=== PATIENT | female | born 1935 | race Caucasian/White ===

== ENCOUNTER 2016-05-19 19:44 | Observation (INO) | payer MEDICARE, BC ==
--- NOTE | 2016-05-19 20:45 | EDM.PDOC ---
ED HISTORY OF PRESENT ILLNESS - General Chief Complaint: Chest Pain Stated Complaint: chest heaviness at 1200 no chest pain Time Seen by Provider: 05/19/16 20:24 Source of Information: Reports: Patient, Family History Limitations: Reports: No limitations - History of Present Illness INITIAL COMMENTS - FREE TEXT/NARRATIVE: pt states at 1200 to day had chest heaviness all over that cant be described or quantified with a number but NO PAIN that lasted till 6pm and got better after taken a 325mg asa pt denies any SOB CP NV abd pain had 1 diarrhea BM this am has had chest congestion x montha saw pcp multiple x no results with meds xrays denies fever chills cough no cardiac HX has 24 hrs 2 yrs ago with same s/s normal stay with labs no work up Timing/Duration: Reports: Hour(s): Severity: mild Location, General: Reports: chest Quality: Reports: Other Improves with: Reports: Other (asa) Worsens with: Reports: None Associated Symptoms (General): Reports: no other symptoms 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 - Related Data Allergies/ADRs: Allergies Allergy/AdvReac Type Severity Reaction Status Date / Time No Known Drug Allergies Allergy Other Verified 05/19/16 22:58 Home Meds: Home Meds Allopurinol [Zyloprim] 150 mg PO DAILY 10/21/13 [History] Aspirin 81 mg PO DAILY 10/21/13 [History] Fluticasone Propionate 16 gm NS DAILY PRN 10/21/13 [History] Guaifenesin/Pseudoephedrne HCl [Mucinex D ER] 1 tab PO BID PRN 10/21/13 [History ] Lisinopril [Prinivil] 2.5 mg PO DAILY 10/21/13 [History] Simvastatin [Zocor] 20 mg PO BEDTIME 10/21/13 [History] metFORMIN [Glucophage] 1,000 mg PO WDIN 10/21/13 [History] Nitroglycerin 0.4 mg SL ASDIRECTED #10 tab.subl 10/22/13 [Rx] Montelukast Sodium [Singulair] 10 mg PO DAILY #30 tablet 05/20/16 [Rx] Past Medical History HEENT History: Reports: Allergic rhinitis Cardiovascular History: Reports: Angina, High cholesterol, Hypertension. Denies : Afib, Aneurysm, Arrhythmia, Blood clots/VTE/DVT, CAD, Pacemaker, Pulmonary hypertension, PVD, SOB on exertion, Stents, Syncope Respiratory History: Denies: Asthma, Bronchitis, recurrent, COPD, PE, Sleep apnea, SOB Gastrointestinal History: Reports: None Musculoskeletal History: Reports: Gout Endocrine/Metabolic History: Reports: Diabetes, type II Oncologic (Cancer) History: Reports: Squamous cell carcinoma, Other (see below) Other Oncologic History: to left calf Social & Family History - Tobacco Use Smoking Status *Q: Never Smoker Second Hand Smoke Exposure: No - Alcohol Use Days Per Week of Alcohol Use: 0 - Recreational Drug Use Recreational Drug Use: No ED ROS GENERAL - Review of Systems Review Of Systems: See Below Constitutional: Denies: fever, chills, weakness, fatigue, night sweats, diaphoresis, decreased appetite, weight gain HEENT: Reports: No symptoms Respiratory: Reports: Sputum. Denies: Shortness of Breath, Wheezing, Pleuritic Chest Pain, Cough, Hemoptysis Cardiovascular: Denies: Chest pain, Blood pressure problem, Claudication, Dyspnea on exertion, Edema, Lightheadedness, Orthopnea, Palpitations, PND, Syncope Endocrine: Denies: fatigue, high glucose GI/Abdominal: Denies: Abdominal pain, Nausea, Vomiting : Reports: no symptoms Skin: Reports: no symptoms Neurological: Reports: No Symptoms Psychiatric: Reports: No symptoms Hematologic/Lymphatic: Reports: no symptoms Immunologic: Reports: no symptoms ED EXAM, GENERAL - Physical Exam Exam: See Below Exam Limited By: No limitations General Appearance: alert, WD/WN, no apparent distress Ears: normal external exam Nose: normal inspection, normal mucosa Throat/Mouth: Normal inspection, Normal lips, Normal teeth, Normal oropharynx Neck: normal inspection, supple, non-tender, full range of motion. No: carotid bruit Respiratory/Chest: no respiratory distress, lungs clear, normal breath sounds, no accessory muscle use, chest non-tender. No: respiratory distress, decreased breath sounds, crackles, rales, rhonchi, wheezing, accessory muscle use Cardiovascular: normal peripheral pulses, regular rate, rhythm. No: JVD GI/Abdominal: normal bowel sounds, soft, non tender, no organomegaly, no distention, no abnormal bruit Back Exam: normal inspection, full range of motion. No: CVA tenderness (L), CVA tenderness (R) Extremities: normal inspection, normal range of motion, non-tender, no pedal edema Neurological: alert, oriented, CN II-XII intact Psychiatric: normal affect Skin Exam: Warm, Dry Lymphatic: no adenopathy EKG INTERPRETATION EKG Date: 05/19/16 Course - Vital Signs Text/Narrative:: ekg cbcbbmp mg trop CXR labs normal xray NAF per pt BUN CR have been mildly elevated last few visits will obs pt for serial trops and DR Haas will see in am she believes pt had neg stress test in past with prior obs 2144 Last Recorded V/S: Last Vital Signs Temp 36.6 C 05/20/16 05:49 Pulse 62 05/20/16 05:49 Resp 16 05/20/16 05:49 BP 101/46 L 05/20/16 05:49 Pulse Ox 95 05/20/16 05:49 - Orders/Labs/Meds Orders: Active Orders 24 hr Category Date Time Status EKG 12 Lead [EKG Documentation Completion] [RC] .PRN Care 05/19/16 20:24 Active Chest 2V [CR] Stat Exams 05/19/16 20:23 Taken Labs: Laboratory Tests 05/19/16 05/19/16 Range/Units 20:40 20:40 WBC 7.7 (4.0-10.0) x10^3/uL RBC 4.68 (4.00-5.50) x10^6/uL Hgb 13.4 (12.0-16.0) g/dL Hct 40.8 (33.0-47.0) % MCV 87.2 (78.0-93.0) fL MCH 28.6 (26.0-32.0) pg MCHC 32.8 (32.0-36.0) g/dL RDW Coeff of Mario 13.6 (10.0-15.0) % Plt Count 197 (130-400) x10^3/uL Neut % (Auto) 39.6 L (50.0-80.0) % Lymph % (Auto) 42.5 (25.0-50.0) % Dixon % (Auto) 9.0 (2.0-11.0) % Eos % (Auto) 8.4 H (0.0-4.0) % Baso % (Auto) 0.5 (0.2-1.2) % Sodium 140 (136-145) mmol/L Potassium 4.0 (3.5-5.1) mmol/L Chloride 105 (98-107) mmol/L Carbon Dioxide 31 (21-32) mmol/L BUN 21 H (7-18) mg/dL Creatinine 1.1 H (0.55-1.02) mg/dL Est Cr Clr Drug Dosing TNP Estimated GFR (MDRD) 48 Glucose 126 H (74-106) mg/dL Calcium 9.8 (8.5-10.1) mg/dL Troponin I < 0.017 (<=0.056) ng/mL Meds: Medications Discontinued Medications Generic Name Dose Route Start Last Admin Trade Name Freq PRN Reason Stop Dose Admin Lisinopril 2.5 mg 05/20/16 08:00 05/20/16 07:48 Prinivil PO 2.5 mg DAILY [facility] Administration Metformin HCl 1,000 mg 05/19/16 22:45 05/20/16 00:56 Glucophage PO Not Given WDIN [facility] Metformin HCl 1,000 mg 05/20/16 18:00 Glucophage PO DAILY@1800 [facility] Nitroglycerin 0.4 mg 05/19/16 22:45 Nitrostat SL ASDIRECTED [facility] Departure - Departure Time of Disposition: 22:00 Disposition: Refer to Observation Condition: good Clinical Impression: Acute coronary syndrome, Angina - Problem List & Annotations (1) Atypical angina SNOMED Code(s): 181001381 Code(s): I20.8 - OTHER FORMS OF ANGINA PECTORIS Status: Acute - My Orders Last 24 Hours: My Active Orders 05/19/16 20:23 Chest 2V [CR] Stat 05/19/16 20:24 EKG 12 Lead [EKG Documentation Completion] [RC] .PRN - Assessment/Plan Admission H&P: Please use this note as an admission H&P Last 24 Hours: My Active Orders 05/19/16 20:23 Chest 2V [CR] Stat 05/19/16 20:24 EKG 12 Lead [EKG Documentation Completion] [RC] .PRN
[2016-05-19 21:09] LABS: CHLORIDE,CL 105 mmol/L (98-107); SODIUM,NA 140 mmol/L (136-145)
[2016-05-19] MEDS ORDERED: metFORMIN 500 MG Tab PO SCH (22:45)
[2016-05-19] MEDS ORDERED: Nitroglycerin 0.4 MG Tab.SL SL SCH (22:45)
[2016-05-20 05:51] VITALS: BP 101/46
[2016-05-20] MEDS ORDERED: Lisinopril 2.5 MG Tab PO SCH (08:00)
[2016-05-20] MEDS ORDERED: metFORMIN 500 MG Tab PO SCH (18:00)
--- NOTE | 2016-05-20 22:48 | DISCH ---
PRIMARY DISCHARGE DIAGNOSES: 1. Chest tightness, likely atypical angina but ruled out for myocardial infarction with serial troponins. 2. No documented history of coronary artery disease. 3. Diabetes with peripheral neuropathy. 4. Likely chronic rhinitis. REASON FOR ADMISSION: On the date of admission, this 80-year-old female had an onset of chest tightness while she was just working, decluttering things in her home. It was persistent and finally around supper time, she took some aspirin and then got in the car, they decided to come to [place] to the emergency room but on the way here, the pain actually went away. She had no shortness of breath or other symptoms during her chest tightness. She had not been having other problems over the last couple of weeks with chest tightness. She had a previous admission in 10/2013 for any angina and ended up with a negative Cardiolite. She also had a negative Cardiolite exam back in 2013. She was able to go over 3 minutes on the treadmill back then. She was out in her yard feeding her cats and things earlier yesterday without any pain. Otherwise, she feels that she just congested in the chest but she has not been coughing. She has been doing a lot of sneezing. She has had a lot of allergy and sinus symptoms, scratchy throat with drainage. So, she was using Flonase and saline sprays but has been off her Claritin for about 2 weeks. She has not been wheezing or having any asthma type symptoms. DISCHARGE PLANS AND INSTRUCTIONS: The patient is being discharged home for outpatient followup with Dr. Haas in June. No lab work is due until September. She will be started on a new medication to try Singulair to see if it helps her symptoms. In the mean time, she does not need to restart her Claritin but may continue the saline rinses and Flonase. Telemetry was monitored. She had no events. EKG was repeated in the morning of discharge and looked okay with a normal sinus rhythm, nonspecific inferior ST changes. Monika Ascencio admitted for observation for chest pain and ruled out with negative troponins. Physical Exam Constitutional: She is oriented to person, place, and time. She appears well- developed and well-nourished. No distress. HENT: Head: Normocephalic and atraumatic. Mouth/Throat: Uvula is midline and oropharynx is clear and moist. No oropharyngeal exudate. Eyes: Conjunctivae and EOM are normal. Pupils are equal, round, and reactive to light. Right eye exhibits no discharge. Left eye exhibits no discharge. No scleral icterus. Neck: Normal range of motion. Neck supple. No JVD present. No tracheal deviation present. No thyromegaly present. Cardiovascular: Normal rate, regular rhythm, normal heart sounds and intact distal pulses. No murmur heard. Pulmonary/Chest: Effort normal and breath sounds normal. No respiratory distress. She has no wheezes. She has no rales. She exhibits no tenderness. Musculoskeletal: Normal range of motion. She exhibits no edema or tenderness. Lymphadenopathy: She has no cervical adenopathy. Neurological: She is alert and oriented to person, place, and time. She has normal reflexes. No cranial nerve deficit. She exhibits normal muscle tone. Coordination normal. Skin: Skin is warm and dry. No rash noted. She is not diaphoretic. No erythema. No pallor. Psychiatric: She has a normal mood and affect. Her speech is normal and behavior is normal. Judgment and thought content normal. MKA: 05/20/2016 09:00:48 MODL: 05/20/2016 22:42:44 /[id number] MTDD
== END 2016-05-20 09:10 | disposition home or self-care (01) ==
LOC: VM.ED 19:44 → VM.MS 22:13
PROVIDERS: ADMIT Physician Assistant Medical; ATTEND Physician Assistant Medical
DX: R07.89 Other chest pain (principal); E11.42 Type 2 diabetes mellitus with diabetic polyneuropathy; I10 Essential (primary) hypertension; E78.00 Pure hypercholesterolemia, unspecified; Z79.82 Long term (current) use of aspirin; Z79.899 Other long term (current) drug therapy
CPT/HCPCS: 36415; 71020; 80048; 84484; 85025; 93005; 99285; A9270; G0378; 99219

== ENCOUNTER 2019-11-01 06:16 | Day surgery (SDC) | payer MEDICARE, BC ==
[2019-11-01] MEDS: Lactated Ringers 1,000 ML IV SCH (06:47)
[2019-11-01] MEDS ORDERED: fentaNYL 100 MCG/2 ML SDV ONE (07:33)
[2019-11-01] MEDS ORDERED: Propofol 200 MG/20 ML SDV ONE ×2 (07:33→08:06)
[2019-11-01 09:07] VITALS: BP 111/62; PULSE 71
--- NOTE | 2019-11-01 12:23 | OR ---
PREOPERATIVE DIAGNOSES: 1. Unexplained weight loss. 2. Diarrhea. 3. History of difficult colonoscopies that were aborted x2. POSTOPERATIVE DIAGNOSES: 1. Unexplained weight loss. 2. Diarrhea. 3. History of difficult colonoscopies that were aborted x2. 4. Sigmoid diverticulosis. PROCEDURE PERFORMED: Total flexible colonoscopy. FINDINGS: 1. Sigmoid colon polyp x2, 3 mm, cold forceps. 2. Rectal polyp, 2 mm, cold forceps. 3. Mild sigmoid diverticulosis. 4. Otherwise grossly normal colon, random biopsies obtained. 5. Tortuous and redundant colon requiring quite a bit of varied abdominal pressure to get the scope all the way to the cecum. This scope was really very difficult and I would recommend that any future colonoscopies be done by GI. ANESTHESIA: MAC anesthesia. COMPLICATIONS: None apparent. BLOOD LOSS: Minimal. START TIME: 0744. CECUM TIME: 0817. STOP TIME: 08. BOWEL PREP: [place] class 3. INDICATIONS FOR PROCEDURE: Ms. Ascencio is an 84-year-old female who has had about a 20-pound weight loss over the last 6 to 7 months. This is unexplained. She also has been having some associated diarrhea. Her PCP ordered a CT scan which was reportedly normal, although I have not personally seen the results of this. The colonoscopy is component of her workup for this weight loss. Notably, her last colonoscopy was in 2011, which was negative for polyps. However, the endoscopist was unable to get past the transverse colon due to redundancy. The scope prior to that also was apparently very difficult and the endoscopist was unable to get past the transverse colon. She denies a family history of colon cancer. DETAILS OF PROCEDURE: After informed consent was obtained, the patient was brought to the procedure room and placed in left lateral decubitus position. MAC anesthesia was induced by Anesthesia colleagues. The endoscope incorporated with an Endocuff was introduced into the rectum and was passed through the transverse colon. As was previously documented, we found this very difficult and at one point we were unable to pass the scope any further. I did feel that the Endocuff was creating just a bit of just enough resistance to inhibit us. So, the endoscope was withdrawn and the Endocuff device was removed. This was again advanced to the transverse colon. It was very difficult to get through this portion of the colon. The patient required very abdominal pressure. We also spent some time attempting to reduce any loops that had formed in the sigmoid colon. Ultimately, after several attempts, we were able to reach the cecum. The appendiceal orifice and ileocecal valve were photographed. The endoscope was then slowly withdrawn and no pathology was identified except for what is mentioned in the above findings section. The scope was difficult enough that I feel if she should need any additional colonoscopy, that should be done by a GI specialist. 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 Given age future colon cancer screening not required. 2. Discussed diagnosis of collagenous (lymphocytic) colitis with PCP over the phone. She will manage this for the patient. RKM: 11/01/2019 08:43:50 MODL: 11/01/2019 11:04:55 /[id number] JOSEY
--- NOTE | 2019-11-07 09:52 | LETTER ---
11/03/2019 RE: VALDEMAR PATEL : 1935 Ms. Valdemar Patel [id number] [id number] Dear Ms. Patel: I am writing to inform you of the pathology results of your colonoscopy. We did discuss these in detail over the phone earlier today, but this letter will serve as a document for your records. You had a couple of small polyps, which are unconcerning. You do not require additional screening for colorectal cancer given your age. In addition, we found evidence of a diagnosis called collagenous colitis. This is also sometimes called lymphocytic colitis. It is a problem in the colon that can cause both your diarrhea and the weight loss that you have been experiencing. It is treated with medicines. These medications usually are oriented towards decreasing of the inflammation in your colon. I spoke on the phone with Dr. Haas, who will prescribe you a medication to start treating this. She will then discuss this with you in more detail at your upcoming appointment on 11/14. Please call if you have any questions or concerns. Warmest regards,
== END 2019-11-01 09:55 | disposition home or self-care (01) ==
LOC: VM.SDS 06:16
PROVIDERS: ATTEND Student in an Organized Health Care Education/Training Program
DX: D12.5 Benign neoplasm of sigmoid colon (principal); K62.1 Rectal polyp; K57.30 Diverticulosis of large intestine without perforation or abscess without bleeding; Q43.8 Other specified congenital malformations of intestine; K52.9 Noninfective gastroenteritis and colitis, unspecified; G25.0 Essential tremor; E55.9 Vitamin D deficiency, unspecified; N95.9 Unspecified menopausal and perimenopausal disorder; G89.29 Other chronic pain; M25.512 Pain in left shoulder; M25.511 Pain in right shoulder; E78.00 Pure hypercholesterolemia, unspecified; E78.5 Hyperlipidemia, unspecified; M10.9 Gout, unspecified; E11.40 Type 2 diabetes mellitus with diabetic neuropathy, unspecified; Z98.890 Other specified postprocedural states; Z01.812 Encounter for preprocedural laboratory examination; Z20.828 Contact with and (suspected) exposure to other viral communicable diseases; Z79.899 Other long term (current) drug therapy; Z88.8 Allergy status to other drugs, medicaments and biological substances
CPT/HCPCS: 00811; 45380; 82962; J2704; J3010; J7120; U0002; 88305

== ENCOUNTER 2022-05-21 11:58 | Emergency (ER) | payer MEDICARE, BC ==
[2022-05-21 12:47] VITALS: BP 146/65
[2022-05-21 13:08] LABS: CHLORIDE,CL 104 mmol/L (98-107); ESTIMATED GFR 72 mL/min (>=60); SODIUM,NA 142 mmol/L (136-145)
== END 2022-05-21 13:20 | disposition home or self-care (01) ==
LOC: VM.ED 11:58
DX: T69.9XXA Effect of reduced temperature, unspecified, initial encounter (principal); E78.00 Pure hypercholesterolemia, unspecified; I10 Essential (primary) hypertension; J44.9 Chronic obstructive pulmonary disease, unspecified; E11.40 Type 2 diabetes mellitus with diabetic neuropathy, unspecified; Z88.8 Allergy status to other drugs, medicaments and biological substances; Z79.82 Long term (current) use of aspirin; Z79.84 Long term (current) use of oral hypoglycemic drugs; Z79.899 Other long term (current) drug therapy
CPT/HCPCS: 36415; 80053; 85025; 93005; 93010; 99283; 99284

== ENCOUNTER 2023-12-11 15:37 | Inpatient (IN) | payer MEDICARE, BC ==
[2023-12-11 17:49] LABS: HEMATOCRIT 44.7 % (33.0-47.0); HEMOGLOBIN 15.1 g/dL (12.0-16.0); MEAN CORPUSCULAR HGB CONC 33.8 g/dL (32.0-36.0); MEAN CORPUSCULAR VOLUME 82.9 fL (78.0-93.0); PLATELET COUNT,PLT 104 x10^3/uL (130-400); RED BLOOD CELL COUNT 5.39 x10^6/uL (4.00-5.50)
[2023-12-11 18:00] LABS: LYMPHOCYTES % ATYPICAL MANUAL 3 % (0); LYMPHOCYTES ABSOLUTE MAN 0.5 x10^3/uL (1.0-4.8); LYMPHOCYTES PERCENT MAN 21 % (25-50); MONOCYTES ABSOLUTE MAN 0.2 x10^3/uL (0.0-0.8); MONOCYTES PERCENT MAN 11 % (2-11); NEUTROPHILS ABSOLUTE MAN 1.3 x10^3/uL (1.8-7.7); PLATELET COUNT ESTIMATE DECREASED; SEG NEUTROPHILS PERCENT MAN 65 % (50-80)
[2023-12-11 18:16] LABS: A/G RATIO 0.79; ALANINE AMINOTRANSFERASE,ALT 977 U/L (14-59); ALBUMIN 3.3 g/dL (3.4-5.0); ALKALINE PHOSPHATASE 618 U/L (46-116); ANION GAP 16.4 mmol/L (5-15); BILIRUBIN TOTAL 0.9 mg/dL (0.2-1.0); BLOOD UREA NITROGEN,BUN 38 mg/dL (7-18); CALCIUM 9.7 mg/dL (8.5-10.1); CARBON DIOXIDE,CO2 25 mmol/L (21-32); CHLORIDE,CL 99 mmol/L (98-107); ESTIMATED GFR 54 mL/min (>=60); GLUCOSE RANDOM 226 mg/dL (70-99); POTASSIUM,K 4.4 mmol/L (3.5-5.1); PROTEIN TOTAL,TP 7.5 g/dL (6.4-8.2); SODIUM,NA 136 mmol/L (136-145)
[2023-12-11] MEDS: Acetaminophen 325 MG Tab PO ONE (18:22)
[2023-12-11 18:57] LABS: ASPARTATE AMNIOTRANSFERASE,AST 2325 U/L (15-37)
[2023-12-11] MEDS: Iopamidol 612 MG/ML 100 ML Bottle IVPUSH ONE (20:24)
[2023-12-11 20:32] LABS: APPEARANCE,URINE CLOUDY (CLEAR); BILIRUBIN,URINE NEGATIVE (NEGATIVE); COLOR,URINE AMBER (YELLOW); GLUCOSE,URINE NEGATIVE (NEGATIVE); KETONES,URINE NEGATIVE (NEGATIVE); LEUKOCYTE ESTERASE,URINE TRACE (NEGATIVE); NITRITE,URINE NEGATIVE (NEGATIVE); OCCULT BLOOD,URINE MODERATE (NEGATIVE); PH,URINE 6.5 (5.0-8.0); PROTEIN,URINE 100 mg/dL (NEGATIVE); UROBILINOGEN,URINE 0.2 EU/dL (0.2)
[2023-12-11 20:40] LABS: SQUAMOUS EPITHELIAL CELLS,UR FEW /HPF (NOT SEEN)
[2023-12-11 20:41] LABS: BACTERIA,URINE FEW /HPF (NOT SEEN); MUCUS,URINE FEW /LPF (NOT SEEN)
[2023-12-11] MEDS: Sodium Chloride 0.9% 1,000 ML IV SCH (21:45)
[2023-12-11] MEDS ORDERED: Polyethylene Glycol 3350 Powder 17 GM Packet PO PRN (22:17)
[2023-12-11] MEDS ORDERED: Ondansetron 4 MG Tab.DIS PO PRN (22:17)
[2023-12-11] MEDS ORDERED: Magnesium Hydroxide 400 MG/5 ML Susp 30 ML Cup PO PRN (22:17)
[2023-12-11] MEDS: Nitrofurantoin Monohydrate/Macrocrystalline 100 MG Cap PO SCH (22:57)
[2023-12-12] MEDS: Sodium Chloride 0.9% 1,000 ML IV SCH (05:15)
[2023-12-12 08:10] LABS: HEMATOCRIT 44.1 % (33.0-47.0); HEMOGLOBIN 14.8 g/dL (12.0-16.0); MEAN CORPUSCULAR HEMOGLOBIN 27.9 pg (26.0-32.0); MEAN CORPUSCULAR HGB CONC 33.6 g/dL (32.0-36.0); MEAN CORPUSCULAR VOLUME 83.1 fL (78.0-93.0); RED BLOOD CELL COUNT 5.31 x10^6/uL (4.00-5.50)
[2023-12-12 08:20] LABS: INR 1.1 (0.9-1.1); PROTHROMBIN TIME 11.1 SEC (8.9-11.5)
[2023-12-12 08:31] LABS: A/G RATIO 0.79; BILIRUBIN TOTAL 1.1 mg/dL (0.2-1.0); C-REACTIVE PROTEIN 7.25 mg/dL (<=0.50); CALCIUM 9.1 mg/dL (8.5-10.1); CREATININE 0.8 mg/dL (0.55-1.02); EST CRCL DRUG DOSING (CG) 42.32 mL/min; POTASSIUM,K 3.2 mmol/L (3.5-5.1); PROTEIN TOTAL,TP 6.8 g/dL (6.4-8.2)
[2023-12-12 08:33] LABS: ANION GAP 13.2 mmol/L (5-15)
[2023-12-12] MEDS: Potassium Chloride 20 MEQ Tab.ER PO ONE (11:09)
[2023-12-12] MEDS: predniSONE 20 MG Tab PO SCH (11:10)
[2023-12-12] MEDS: methylPREDNISolone Sodium Succinate 40 MG/1 ML SDV IVPUSH ONE (15:56)
[2023-12-12] MEDS: Donepezil 10 MG Tab PO SCH (20:14)
[2023-12-13 07:10] LABS: BASOPHILS PERCENT AUTO 0.3 % (0.2-1.2); EOSINOPHILS PERCENT AUTO 0.3 % (0.0-4.0); HEMATOCRIT 41.6 % (33.0-47.0); HEMOGLOBIN 14.2 g/dL (12.0-16.0); IMMATURE GRAN ABSOLUTE AUTO 0.02 x10^3/uL (0.00-0.07); LYMPHOCYTES ABSOLUTE AUTO 1.6 x10^3/uL (1.0-4.8); LYMPHOCYTES PERCENT AUTO 24.2 % (25.0-50.0); MEAN CORPUSCULAR HGB CONC 34.1 g/dL (32.0-36.0); MEAN CORPUSCULAR VOLUME 81.9 fL (78.0-93.0); MONOCYTES ABSOLUTE AUTO 0.4 x10^3/uL (0.0-0.8); MONOCYTES PERCENT AUTO 5.4 % (2.0-11.0); NEUTROPHILS ABSOLUTE AUTO 4.5 x10^3/uL (1.8-7.7); NEUTROPHILS PERCENT AUTO 69.5 % (50.0-80.0); PLATELET COUNT,PLT 123 x10^3/uL (130-400); RED BLOOD CELL COUNT 5.08 x10^6/uL (4.00-5.50); WHITE BLOOD CELL COUNT,WBC 6.5 x10^3/uL (4.0-10.0)
[2023-12-13 07:12] LABS: A/G RATIO 0.69; ALBUMIN 2.4 g/dL (3.4-5.0); BILIRUBIN TOTAL 0.6 mg/dL (0.2-1.0); C-REACTIVE PROTEIN 5.32 mg/dL (<=0.50); CALCIUM 8.9 mg/dL (8.5-10.1); CREATININE 0.7 mg/dL (0.55-1.02); EST CRCL DRUG DOSING (CG) 51.74 mL/min; POTASSIUM,K 3.4 mmol/L (3.5-5.1); PROTEIN TOTAL,TP 5.9 g/dL (6.4-8.2)
[2023-12-13 07:13] LABS: ANION GAP 13.4 mmol/L (5-15)
[2023-12-13] MEDS: Magnesium Sulfate/Water Premix 2 GM in Premix Bag 1 BAG IV ONE (08:52)
[2023-12-13] MEDS: Potassium Chloride 10 MEQ Tab.ER PO SCH (08:54)
[2023-12-13] MEDS: Famotidine 20 MG Tab PO SCH (11:21)
[2023-12-13] MEDS: QUEtiapine 25 MG Tab PO PRN (20:23)
[2023-12-14 07:12] LABS: HEMATOCRIT 40.7 % (33.0-47.0); HEMOGLOBIN 14.3 g/dL (12.0-16.0); MEAN CORPUSCULAR HEMOGLOBIN 28.2 pg (26.0-32.0); MEAN CORPUSCULAR HGB CONC 35.1 g/dL (32.0-36.0); MEAN CORPUSCULAR VOLUME 80.3 fL (78.0-93.0); PLATELET COUNT,PLT 125 x10^3/uL (130-400); RED BLOOD CELL COUNT 5.07 x10^6/uL (4.00-5.50); WHITE BLOOD CELL COUNT,WBC 8.6 x10^3/uL (4.0-10.0)
[2023-12-14 07:39] LABS: BAND PERCENT MAN 5 % (0-6); LYMPHOCYTES % ATYPICAL MANUAL 10 % (0); LYMPHOCYTES ABSOLUTE MAN 2.7 x10^3/uL (1.0-4.8); LYMPHOCYTES PERCENT MAN 21 % (25-50); MONOCYTES ABSOLUTE MAN 0.3 x10^3/uL (0.0-0.8); MONOCYTES PERCENT MAN 4 % (2-11); NEUTROPHILS ABSOLUTE MAN 5.6 x10^3/uL (1.8-7.7); SEG NEUTROPHILS PERCENT MAN 60 % (50-80)
[2023-12-14 07:40] LABS: MAGNESIUM 1.7 mg/dL (1.8-2.4); PLATELET COUNT ESTIMATE DECREASED
[2023-12-14 07:42] LABS: A/G RATIO 0.74; ALBUMIN 2.3 g/dL (3.4-5.0); BILIRUBIN TOTAL 0.5 mg/dL (0.2-1.0); CALCIUM 8.8 mg/dL (8.5-10.1); CREATININE 0.8 mg/dL (0.55-1.02); EST CRCL DRUG DOSING (CG) 45.12 mL/min; POTASSIUM,K 3.4 mmol/L (3.5-5.1); PROTEIN TOTAL,TP 5.4 g/dL (6.4-8.2)
[2023-12-14 07:47] LABS: ANION GAP 13.4 mmol/L (5-15)
[2023-12-14] MEDS: Magnesium Sulfate/Water Premix 2 GM in Premix Bag 1 BAG IV ONE (09:11)
[2023-12-15 07:02] LABS: HEMOGLOBIN 14.9 g/dL (12.0-16.0); MEAN CORPUSCULAR HEMOGLOBIN 28.1 pg (26.0-32.0); MEAN CORPUSCULAR HGB CONC 34.7 g/dL (32.0-36.0); MEAN CORPUSCULAR VOLUME 81.1 fL (78.0-93.0); PLATELET COUNT,PLT 161 x10^3/uL (130-400); WHITE BLOOD CELL COUNT,WBC 10.1 x10^3/uL (4.0-10.0)
[2023-12-15 07:26] LABS: MAGNESIUM 1.9 mg/dL (1.8-2.4)
[2023-12-15 07:31] LABS: A/G RATIO 0.67; ALBUMIN 2.2 g/dL (3.4-5.0); BILIRUBIN TOTAL 0.4 mg/dL (0.2-1.0); CALCIUM 8.8 mg/dL (8.5-10.1); CREATININE 0.9 mg/dL (0.55-1.02); EST CRCL DRUG DOSING (CG) 39.73 mL/min; POTASSIUM,K 3.8 mmol/L (3.5-5.1); PROTEIN TOTAL,TP 5.5 g/dL (6.4-8.2)
[2023-12-15 07:34] LABS: ANION GAP 12.8 mmol/L (5-15)
[2023-12-15 07:50] LABS: BAND PERCENT MAN 2 % (0-6); EOSINOPHILS ABSOLUTE MAN 0.1 x10^3/uL (0.0-0.5); EOSINOPHILS PERCENT MAN 1 % (0-4); LYMPHOCYTES % ATYPICAL MANUAL 5 % (0); LYMPHOCYTES ABSOLUTE MAN 2.5 x10^3/uL (1.0-4.8); LYMPHOCYTES PERCENT MAN 20 % (25-50); MONOCYTES ABSOLUTE MAN 0.3 x10^3/uL (0.0-0.8); MONOCYTES PERCENT MAN 3 % (2-11); NEUTROPHILS ABSOLUTE MAN 7.2 x10^3/uL (1.8-7.7); PLATELET COUNT ESTIMATE ADEQUATE; SEG NEUTROPHILS PERCENT MAN 69 % (50-80)
[2023-12-15] MEDS: Acetaminophen 325 MG Tab PO PRN (09:08)
[2023-12-15] MEDS: Digoxin 500 MCG/2 ML Amp IVPUSH SCH (09:38)
[2023-12-15] MEDS: Metoprolol Tartrate 25 MG Tab PO SCH (09:38)
[2023-12-15 12:06] LABS: HBC IGM Negative (Negative); HBS AB <3.10 IU/L; HCV AB BY CIA INTERP Negative (Negative); HEPC AB BY CIA INDEX 0.06 IV
[2023-12-15 14:12] LABS: HAV AB IGM Negative (Negative)
[2023-12-16 06:58] LABS: HEMATOCRIT 42.6 % (33.0-47.0); MEAN CORPUSCULAR HEMOGLOBIN 28.2 pg (26.0-32.0); MEAN CORPUSCULAR HGB CONC 35.2 g/dL (32.0-36.0); MEAN CORPUSCULAR VOLUME 80.1 fL (78.0-93.0); PLATELET COUNT,PLT 196 x10^3/uL (130-400); RED BLOOD CELL COUNT 5.32 x10^6/uL (4.00-5.50); WHITE BLOOD CELL COUNT,WBC 12.1 x10^3/uL (4.0-10.0)
[2023-12-16 07:12] LABS: BAND PERCENT MAN 2 % (0-6); EOSINOPHILS ABSOLUTE MAN 0.5 x10^3/uL (0.0-0.5); EOSINOPHILS PERCENT MAN 4 % (0-4); LYMPHOCYTES % ATYPICAL MANUAL 8 % (0); LYMPHOCYTES PERCENT MAN 17 % (25-50); MONOCYTES ABSOLUTE MAN 0.6 x10^3/uL (0.0-0.8); MONOCYTES PERCENT MAN 5 % (2-11); SEG NEUTROPHILS PERCENT MAN 64 % (50-80)
[2023-12-16 07:13] LABS: PLATELET COUNT ESTIMATE ADEQUATE
[2023-12-16 07:14] LABS: A/G RATIO 0.68; ALBUMIN 2.3 g/dL (3.4-5.0); BILIRUBIN TOTAL 0.4 mg/dL (0.2-1.0); CALCIUM 8.7 mg/dL (8.5-10.1); CREATININE 0.9 mg/dL (0.55-1.02); EST CRCL DRUG DOSING (CG) 40.18 mL/min; PROTEIN TOTAL,TP 5.7 g/dL (6.4-8.2)
[2023-12-16 10:46] VITALS: BP 94/50; PULSE 66
== END 2023-12-16 12:13 | disposition swing bed (61) | DRG 442 ==
LOC: VM.ED 15:37 → VM.MS 22:11
PROVIDERS: ADMIT Nurse Practitioner Family; ATTEND Internal Medicine
DX: R50.9 Fever, unspecified (principal); R74.01 Elevation of levels of liver transaminase levels; K71.2 Toxic liver disease with acute hepatitis; E11.9 Type 2 diabetes mellitus without complications; E44.0 Moderate protein-calorie malnutrition; F02.B18 Dementia in other diseases classified elsewhere, moderate, with other behavioral disturbance; I48.92 Unspecified atrial flutter; T50.B95A Adverse effect of other viral vaccines, initial encounter; G30.1 Alzheimer's disease with late onset; E11.40 Type 2 diabetes mellitus with diabetic neuropathy, unspecified; E11.65 Type 2 diabetes mellitus with hyperglycemia; K52.832 Lymphocytic colitis; R50.83 Postvaccination fever; E78.00 Pure hypercholesterolemia, unspecified; I10 Essential (primary) hypertension; I48.91 Unspecified atrial fibrillation; J44.9 Chronic obstructive pulmonary disease, unspecified; G47.30 Sleep apnea, unspecified; M10.9 Gout, unspecified; D69.6 Thrombocytopenia, unspecified; E87.6 Hypokalemia; E83.42 Hypomagnesemia; Z88.8 Allergy status to other drugs, medicaments and biological substances; Z79.899 Other long term (current) drug therapy; Z86.711 Personal history of pulmonary embolism; Z87.19 Personal history of other diseases of the digestive system; Z90.49 Acquired absence of other specified parts of digestive tract; Z90.89 Acquired absence of other organs; Z90.710 Acquired absence of both cervix and uterus; Z98.51 Tubal ligation status
CPT/HCPCS: 36415; 71045; 74177; 80053; 81001; 82550; 82728; 82947; 83605; 83615; 83735; 84443; 85025; 85027; 85610; 86015; 86038; 86140; 86381; 86705; 86706; 86709; 86803; 87086; 87428-QW; 93005; 96360; 97116-GP; 97161-GP; 97165-GO; 97535-GO; 99285-25; A9270-GY; J1160; J2919; J3475; J7030; J7512; Q9967

== ENCOUNTER 2023-12-16 10:56 | Inpatient (IN) | payer MEDICARE, BC ==
[2023-12-16] MEDS ORDERED: Acetaminophen 325 MG Tab PO PRN (16:12)
[2023-12-16] MEDS ORDERED: Ondansetron 4 MG Tab.DIS PO PRN (16:12)
[2023-12-16] MEDS ORDERED: Magnesium Hydroxide 400 MG/5 ML Susp 30 ML Cup PO PRN (16:12)
[2023-12-16] MEDS ORDERED: Polyethylene Glycol 3350 Powder 17 GM Packet PO PRN (16:12)
[2023-12-16] MEDS: Metoprolol Tartrate 25 MG Tab PO SCH (20:05)
[2023-12-16] MEDS: ALPRAZolam 0.25 MG Tab PO ONE (20:05)
[2023-12-16] MEDS: Donepezil 10 MG Tab PO SCH (20:05)
[2023-12-16] MEDS ORDERED: Melatonin 3 MG Tab PO PRN (22:33)
[2023-12-17 07:07] LABS: HEMATOCRIT 40.1 % (33.0-47.0); HEMOGLOBIN 13.6 g/dL (12.0-16.0); MEAN CORPUSCULAR HEMOGLOBIN 27.6 pg (26.0-32.0); MEAN CORPUSCULAR HGB CONC 33.9 g/dL (32.0-36.0); MEAN CORPUSCULAR VOLUME 81.5 fL (78.0-93.0); PLATELET COUNT,PLT 242 x10^3/uL (130-400); RED BLOOD CELL COUNT 4.92 x10^6/uL (4.00-5.50); WHITE BLOOD CELL COUNT,WBC 11.4 x10^3/uL (4.0-10.0)
[2023-12-17 07:23] LABS: CALCIUM 8.8 mg/dL (8.5-10.1); CREATININE 0.9 mg/dL (0.55-1.02); EST CRCL DRUG DOSING (CG) 40.17 mL/min; POTASSIUM,K 3.9 mmol/L (3.5-5.1)
[2023-12-17 07:24] LABS: ANION GAP 11.9 mmol/L (5-15)
[2023-12-17 07:57] LABS: BAND PERCENT MAN 3 % (0-6); EOSINOPHILS ABSOLUTE MAN 0.5 x10^3/uL (0.0-0.5); EOSINOPHILS PERCENT MAN 4 % (0-4); LYMPHOCYTES % ATYPICAL MANUAL 7 % (0); LYMPHOCYTES ABSOLUTE MAN 3.3 x10^3/uL (1.0-4.8); LYMPHOCYTES PERCENT MAN 22 % (25-50); MONOCYTES ABSOLUTE MAN 0.7 x10^3/uL (0.0-0.8); MONOCYTES PERCENT MAN 6 % (2-11); SEG NEUTROPHILS PERCENT MAN 58 % (50-80)
[2023-12-17] MEDS: Famotidine 20 MG Tab PO SCH (08:46)
[2023-12-17] MEDS: predniSONE 10 MG Tab PO SCH (08:46)
[2023-12-17] MEDS: Potassium Chloride 10 MEQ Tab.ER PO SCH (08:46)
[2023-12-17 11:27] LABS: APPEARANCE,URINE CLOUDY (CLEAR); BILIRUBIN,URINE NEGATIVE (NEGATIVE); COLOR,URINE YELLOW (YELLOW); GLUCOSE,URINE NEGATIVE (NEGATIVE); KETONES,URINE NEGATIVE (NEGATIVE); LEUKOCYTE ESTERASE,URINE SMALL (NEGATIVE); NITRITE,URINE NEGATIVE (NEGATIVE); OCCULT BLOOD,URINE MODERATE (NEGATIVE); PROTEIN,URINE TRACE mg/dL (NEGATIVE); UROBILINOGEN,URINE 0.2 EU/dL (0.2)
[2023-12-17 12:01] LABS: RBC,URINE 0-5 /HPF (NOT SEEN); SQUAMOUS EPITHELIAL CELLS,UR RARE /HPF (NOT SEEN)
[2023-12-17 12:02] LABS: BACTERIA,URINE MANY /HPF (NOT SEEN); MUCUS,URINE RARE /LPF (NOT SEEN)
[2023-12-17] MEDS: ALPRAZolam 0.25 MG Tab PO PRN (20:07)
[2023-12-18 08:32] LABS: HEMOGLOBIN 14.7 g/dL (12.0-16.0); MEAN CORPUSCULAR HEMOGLOBIN 28.1 pg (26.0-32.0); MEAN CORPUSCULAR HGB CONC 34.2 g/dL (32.0-36.0); MEAN CORPUSCULAR VOLUME 82.1 fL (78.0-93.0); PLATELET COUNT,PLT 258 x10^3/uL (130-400); RED BLOOD CELL COUNT 5.24 x10^6/uL (4.00-5.50)
[2023-12-18 09:07] LABS: BAND PERCENT MAN 3 % (0-6); EOSINOPHILS ABSOLUTE MAN 0.1 x10^3/uL (0.0-0.5); EOSINOPHILS PERCENT MAN 1 % (0-4); LYMPHOCYTES % ATYPICAL MANUAL 6 % (0); LYMPHOCYTES ABSOLUTE MAN 4.7 x10^3/uL (1.0-4.8); LYMPHOCYTES PERCENT MAN 33 % (25-50); NEUTROPHILS ABSOLUTE MAN 7.2 x10^3/uL (1.8-7.7); SEG NEUTROPHILS PERCENT MAN 57 % (50-80)
[2023-12-18 09:08] LABS: PLATELET COUNT ESTIMATE ADEQUATE
[2023-12-18 09:12] LABS: A/G RATIO 0.59; ALBUMIN 2.2 g/dL (3.4-5.0); BILIRUBIN TOTAL 0.6 mg/dL (0.2-1.0); CALCIUM 8.8 mg/dL (8.5-10.1); CREATININE 0.8 mg/dL (0.55-1.02); EST CRCL DRUG DOSING (CG) 45.19 mL/min; PROTEIN TOTAL,TP 5.9 g/dL (6.4-8.2)
[2023-12-20 07:01] LABS: HEMATOCRIT 40.5 % (33.0-47.0); HEMOGLOBIN 13.8 g/dL (12.0-16.0); MEAN CORPUSCULAR HEMOGLOBIN 27.8 pg (26.0-32.0); MEAN CORPUSCULAR HGB CONC 34.1 g/dL (32.0-36.0); MEAN CORPUSCULAR VOLUME 81.5 fL (78.0-93.0); PLATELET COUNT,PLT 226 x10^3/uL (130-400); RED BLOOD CELL COUNT 4.97 x10^6/uL (4.00-5.50); WHITE BLOOD CELL COUNT,WBC 15.6 x10^3/uL (4.0-10.0)
[2023-12-20 07:18] LABS: A/G RATIO 0.49; BILIRUBIN TOTAL 0.5 mg/dL (0.2-1.0); CALCIUM 8.8 mg/dL (8.5-10.1); CREATININE 0.9 mg/dL (0.55-1.02); EST CRCL DRUG DOSING (CG) 39.82 mL/min; POTASSIUM,K 3.8 mmol/L (3.5-5.1); PROTEIN TOTAL,TP 6.1 g/dL (6.4-8.2)
[2023-12-20 07:19] LABS: BAND PERCENT MAN 2 % (0-6); LYMPHOCYTES % ATYPICAL MANUAL 4 % (0); LYMPHOCYTES ABSOLUTE MAN 8.1 x10^3/uL (1.0-4.8); LYMPHOCYTES PERCENT MAN 48 % (25-50); MONOCYTES ABSOLUTE MAN 0.6 x10^3/uL (0.0-0.8); MONOCYTES PERCENT MAN 4 % (2-11); NEUTROPHILS ABSOLUTE MAN 6.9 x10^3/uL (1.8-7.7); PLATELET COUNT ESTIMATE ADEQUATE; SEG NEUTROPHILS PERCENT MAN 42 % (50-80)
[2023-12-20 07:20] LABS: ANION GAP 9.8 mmol/L (5-15)
[2023-12-20] MEDS: Amoxicillin/Clavulanate K 875-125 MG Tab PO SCH (09:27)
[2023-12-22 06:38] LABS: HEMATOCRIT 43.3 % (33.0-47.0); HEMOGLOBIN 14.5 g/dL (12.0-16.0); MEAN CORPUSCULAR HEMOGLOBIN 27.2 pg (26.0-32.0); MEAN CORPUSCULAR HGB CONC 33.5 g/dL (32.0-36.0); MEAN CORPUSCULAR VOLUME 81.2 fL (78.0-93.0); PLATELET COUNT,PLT 164 x10^3/uL (130-400); RED BLOOD CELL COUNT 5.33 x10^6/uL (4.00-5.50)
[2023-12-22 06:48] LABS: BAND PERCENT MAN 2 % (0-6); EOSINOPHILS ABSOLUTE MAN 0.3 x10^3/uL (0.0-0.5); EOSINOPHILS PERCENT MAN 2 % (0-4); LYMPHOCYTES % ATYPICAL MANUAL 11 % (0); LYMPHOCYTES ABSOLUTE MAN 6.4 x10^3/uL (1.0-4.8); LYMPHOCYTES PERCENT MAN 29 % (25-50); MONOCYTES ABSOLUTE MAN 1.6 x10^3/uL (0.0-0.8); MONOCYTES PERCENT MAN 10 % (2-11); NEUTROPHILS ABSOLUTE MAN 7.7 x10^3/uL (1.8-7.7); SEG NEUTROPHILS PERCENT MAN 46 % (50-80)
[2023-12-22 06:49] LABS: CALCIUM 9.2 mg/dL (8.5-10.1); CREATININE 0.9 mg/dL (0.55-1.02); EST CRCL DRUG DOSING (CG) 39.82 mL/min; PLATELET COUNT ESTIMATE ADEQUATE; POTASSIUM,K 4.1 mmol/L (3.5-5.1)
[2023-12-22 06:56] LABS: ANION GAP 9.1 mmol/L (5-15)
[2023-12-22] MEDS ORDERED: ALPRAZolam 0.25 MG Tab PO PRN (20:43)
[2023-12-23 06:46] LABS: HEMATOCRIT 42.9 % (33.0-47.0); HEMOGLOBIN 14.3 g/dL (12.0-16.0); MEAN CORPUSCULAR HEMOGLOBIN 27.7 pg (26.0-32.0); MEAN CORPUSCULAR HGB CONC 33.3 g/dL (32.0-36.0); PLATELET COUNT,PLT 160 x10^3/uL (130-400); RED BLOOD CELL COUNT 5.17 x10^6/uL (4.00-5.50)
[2023-12-23 07:04] LABS: BAND PERCENT MAN 5 % (0-6); BASOPHILS ABSOLUTE MAN 0.2 x10^3/uL (0.0-0.2); BASOPHILS PERCENT MAN 1 % (0-1); EOSINOPHILS ABSOLUTE MAN 0.2 x10^3/uL (0.0-0.5); EOSINOPHILS PERCENT MAN 1 % (0-4); LYMPHOCYTES % ATYPICAL MANUAL 9 % (0); LYMPHOCYTES ABSOLUTE MAN 5.9 x10^3/uL (1.0-4.8); LYMPHOCYTES PERCENT MAN 30 % (25-50); METAMYELOCYTE PERCENT MAN 1 % (0); MONOCYTES ABSOLUTE MAN 0.6 x10^3/uL (0.0-0.8); MONOCYTES PERCENT MAN 4 % (2-11); NEUTROPHILS ABSOLUTE MAN 8.1 x10^3/uL (1.8-7.7); SEG NEUTROPHILS PERCENT MAN 49 % (50-80)
[2023-12-23 07:05] LABS: PLATELET COUNT ESTIMATE ADEQUATE
[2023-12-23 07:06] LABS: A/G RATIO 0.29; ALBUMIN 1.7 g/dL (3.4-5.0); BILIRUBIN TOTAL 0.7 mg/dL (0.2-1.0); CALCIUM 9.3 mg/dL (8.5-10.1); CREATININE 1.2 mg/dL (0.55-1.02); EST CRCL DRUG DOSING (CG) 29.86 mL/min; POTASSIUM,K 4.2 mmol/L (3.5-5.1); PROTEIN TOTAL,TP 7.5 g/dL (6.4-8.2)
[2023-12-23 07:07] LABS: ANION GAP 12.2 mmol/L (5-15)
[2023-12-23] MEDS: Sodium Chloride 0.9% 500 ML IV ONE (09:48)
[2023-12-23] MEDS: Apixaban 2.5 MG Tab PO SCH (19:40)
[2023-12-24 06:49] LABS: HEMATOCRIT 38.1 % (33.0-47.0); HEMOGLOBIN 12.7 g/dL (12.0-16.0); MEAN CORPUSCULAR HEMOGLOBIN 27.5 pg (26.0-32.0); MEAN CORPUSCULAR HGB CONC 33.3 g/dL (32.0-36.0); MEAN CORPUSCULAR VOLUME 82.5 fL (78.0-93.0); PLATELET COUNT,PLT 132 x10^3/uL (130-400); RED BLOOD CELL COUNT 4.62 x10^6/uL (4.00-5.50); WHITE BLOOD CELL COUNT,WBC 11.6 x10^3/uL (4.0-10.0)
[2023-12-24 07:10] LABS: A/G RATIO 0.25; ALBUMIN 1.5 g/dL (3.4-5.0); BILIRUBIN TOTAL 0.7 mg/dL (0.2-1.0); CREATININE 1.1 mg/dL (0.55-1.02); EST CRCL DRUG DOSING (CG) 32.58 mL/min; POTASSIUM,K 4.1 mmol/L (3.5-5.1); PROTEIN TOTAL,TP 7.5 g/dL (6.4-8.2)
[2023-12-24 07:19] LABS: BAND PERCENT MAN 2 % (0-6); EOSINOPHILS ABSOLUTE MAN 0.7 x10^3/uL (0.0-0.5); EOSINOPHILS PERCENT MAN 6 % (0-4); LYMPHOCYTES % ATYPICAL MANUAL 11 % (0); LYMPHOCYTES ABSOLUTE MAN 5.8 x10^3/uL (1.0-4.8); LYMPHOCYTES PERCENT MAN 39 % (25-50); METAMYELOCYTE PERCENT MAN 1 % (0); MONOCYTES ABSOLUTE MAN 0.8 x10^3/uL (0.0-0.8); MONOCYTES PERCENT MAN 7 % (2-11); NEUTROPHILS ABSOLUTE MAN 4.2 x10^3/uL (1.8-7.7); PLATELET COUNT ESTIMATE ADEQUATE; SEG NEUTROPHILS PERCENT MAN 34 % (50-80)
[2023-12-24 07:23] LABS: ANION GAP 11.1 mmol/L (5-15); CALCIUM 9.5 mg/dL (8.5-10.1)
[2023-12-24] MEDS: predniSONE 5 MG Tab PO SCH (09:37)
[2023-12-24] MEDS: Apixaban 2.5 MG Tab PO SCH (20:36)
[2023-12-24] MEDS: Donepezil 10 MG Tab PO SCH (20:37)
[2023-12-24] MEDS: Metoprolol Tartrate 25 MG Tab PO SCH (20:37)
[2023-12-24] MEDS: Amoxicillin/Clavulanate K 875-125 MG Tab PO ONE (20:37)
[2023-12-25 18:06] LABS: TSH RECEPTOR AB 1.1 IU/L (<=1.75)
[2023-12-27 07:29] LABS: BASOPHILS ABSOLUTE AUTO 0.1 x10^3/uL (0.0-0.2); BASOPHILS PERCENT AUTO 0.7 % (0.2-1.2); EOSINOPHILS ABSOLUTE AUTO 0.4 x10^3/uL (0.0-0.5); EOSINOPHILS PERCENT AUTO 5.3 % (0.0-4.0); HEMATOCRIT 36.6 % (33.0-47.0); HEMOGLOBIN 12.2 g/dL (12.0-16.0); IMMATURE GRAN ABSOLUTE AUTO 0.02 x10^3/uL (0.00-0.07); LYMPHOCYTES ABSOLUTE AUTO 2.8 x10^3/uL (1.0-4.8); LYMPHOCYTES PERCENT AUTO 40.7 % (25.0-50.0); MEAN CORPUSCULAR HGB CONC 33.3 g/dL (32.0-36.0); MEAN CORPUSCULAR VOLUME 83.9 fL (78.0-93.0); MONOCYTES ABSOLUTE AUTO 0.6 x10^3/uL (0.0-0.8); MONOCYTES PERCENT AUTO 8.5 % (2.0-11.0); NEUTROPHILS PERCENT AUTO 44.5 % (50.0-80.0); PLATELET COUNT,PLT 150 x10^3/uL (130-400); RED BLOOD CELL COUNT 4.36 x10^6/uL (4.00-5.50); WHITE BLOOD CELL COUNT,WBC 6.8 x10^3/uL (4.0-10.0)
[2023-12-27 07:39] LABS: A/G RATIO 0.21; ALBUMIN 1.5 g/dL (3.4-5.0); BILIRUBIN TOTAL 0.6 mg/dL (0.2-1.0); CALCIUM 9.3 mg/dL (8.5-10.1); CREATININE 0.8 mg/dL (0.55-1.02); EST CRCL DRUG DOSING (CG) 44.8 mL/min; POTASSIUM,K 3.3 mmol/L (3.5-5.1); PROTEIN TOTAL,TP 8.6 g/dL (6.4-8.2)
[2023-12-27 07:40] LABS: ANION GAP 7.3 mmol/L (5-15)
[2023-12-27] MEDS: Metoprolol Tartrate 25 MG Tab PO SCH (08:15)
[2023-12-27] MEDS: Potassium Chloride 10 MEQ Tab.ER PO SCH (08:25)
[2023-12-28] MEDS: Sodium Chloride 0.9% 500 ML IV ONE (09:20)
[2023-12-29 06:49] LABS: BASOPHILS ABSOLUTE AUTO 0.1 x10^3/uL (0.0-0.2); BASOPHILS PERCENT AUTO 0.9 % (0.2-1.2); EOSINOPHILS ABSOLUTE AUTO 0.7 x10^3/uL (0.0-0.5); EOSINOPHILS PERCENT AUTO 11.4 % (0.0-4.0); HEMATOCRIT 35.6 % (33.0-47.0); HEMOGLOBIN 11.5 g/dL (12.0-16.0); IMMATURE GRAN ABSOLUTE AUTO 0.01 x10^3/uL (0.00-0.07); LYMPHOCYTES ABSOLUTE AUTO 1.9 x10^3/uL (1.0-4.8); LYMPHOCYTES PERCENT AUTO 32.7 % (25.0-50.0); MEAN CORPUSCULAR HEMOGLOBIN 27.3 pg (26.0-32.0); MEAN CORPUSCULAR HGB CONC 32.3 g/dL (32.0-36.0); MEAN CORPUSCULAR VOLUME 84.4 fL (78.0-93.0); MONOCYTES ABSOLUTE AUTO 0.5 x10^3/uL (0.0-0.8); NEUTROPHILS ABSOLUTE AUTO 2.7 x10^3/uL (1.8-7.7); NEUTROPHILS PERCENT AUTO 46.8 % (50.0-80.0); PLATELET COUNT,PLT 189 x10^3/uL (130-400); RED BLOOD CELL COUNT 4.22 x10^6/uL (4.00-5.50); WHITE BLOOD CELL COUNT,WBC 5.8 x10^3/uL (4.0-10.0)
[2023-12-29 07:05] LABS: CALCIUM 9.3 mg/dL (8.5-10.1); CREATININE 0.8 mg/dL (0.55-1.02); EST CRCL DRUG DOSING (CG) 44.8 mL/min; POTASSIUM,K 3.5 mmol/L (3.5-5.1)
[2023-12-29 07:08] LABS: ANION GAP 8.5 mmol/L (5-15)
[2023-12-30 06:50] VITALS: BP 96/46
[2023-12-30 10:31] VITALS: PULSE 68
== END 2023-12-30 10:15 | DRG 947 ==
LOC: VM.MS 12:18
PROVIDERS: ADMIT Internal Medicine; ATTEND Internal Medicine
DX: R53.1 Weakness (principal); E43 Unspecified severe protein-calorie malnutrition; F02.B18 Dementia in other diseases classified elsewhere, moderate, with other behavioral disturbance; I48.92 Unspecified atrial flutter; N30.00 Acute cystitis without hematuria; F05 Delirium due to known physiological condition; K75.9 Inflammatory liver disease, unspecified; Z66 Do not resuscitate; G30.1 Alzheimer's disease with late onset; K52.832 Lymphocytic colitis; E78.00 Pure hypercholesterolemia, unspecified; I10 Essential (primary) hypertension; D69.6 Thrombocytopenia, unspecified; I48.0 Paroxysmal atrial fibrillation; E11.65 Type 2 diabetes mellitus with hyperglycemia; E87.6 Hypokalemia; E83.42 Hypomagnesemia; E83.52 Hypercalcemia; B96.20 Unspecified Escherichia coli [E. coli] as the cause of diseases classified elsewhere; Z68.20 Body mass index [BMI] 20.0-20.9, adult
CPT/HCPCS: 36415; 70450; 80048; 80053; 81001; 82607; 83520; 85025; 86140; 87086; 87088; 87186; 97110-GP; 97116-GP; 97164-GP; 97530-GP; 97535-GO; A9270-GY; J7040; J7512